=== PATIENT | male | born 1960 | race Caucasian/White ===

== ENCOUNTER → 2017-10-06 13:52 | Outpatient (CLI) | payer BC, SELFPAY ==
--- NOTE | 2017-10-06 13:59 | XR_ITS ---
XR ribs RT min 3V w CXR1V HISTORY: ITS.REASON: RT RIB PAIN ORDERING PHYSICIAN: Kamla Babcock PATIENT AGE: 57 years COMPARISON: 10/01/2014 FINDINGS: There are old right-sided rib fractures with old fractures of the right fifth and seventh ribs. Old right second rib fracture. In addition, there are acute nondisplaced fractures involving the right third, fourth, fifth, and 6 ribs laterally. Nondisplaced seventh rib fracture also noted anterolaterally Frontal view of the chest shows no evidence of pneumothorax. There are old left-sided rib fractures and there is blunting of the right CP angle with pleural thickening on the right. There is patchy density in the right midlung laterally which could be due to underlying contusion IMPRESSION: 1. Acute nondisplaced right third through seventh ribs with possible right midlung contusion 2. Old bilateral rib fractures with pleural thickening on the right versus small right effusion
== END ==
PROVIDERS: PCP Family Medicine; Visit Provider Nurse Practitioner Family
DX: R07.81 Pleurodynia (principal)
CPT/HCPCS: 71101

== ENCOUNTER → 2018-07-09 12:54 | Outpatient (CLI) | payer BC, SELFPAY ==
--- NOTE | 2018-07-09 13:00 | US_ITS ---
US soft tissue head and neck CLINICAL INDICATION: ITS.REASON: SWOLLEN LYMPH NODES ORDERING PHYSICIAN: Martinez Chan MD PATIENT AGE: 57 years Comparison: None FINDINGS: No obvious parotid mass is evident. No obvious submandibular mass. There is a hypoechoic area along the lower aspect of the right parotid gland at 9 x 6 mm and may represent a lymph node with central fatty hilum. Small lymph node also noted along the left parotid gland inferiorly at 13 x 6 mm. No fluid collections are evident. IMPRESSION: Small bilateral lymph nodes in the parotid regions otherwise negative. Consider CT with contrast if symptoms persist
== END ==
PROVIDERS: PCP Family Medicine; Visit Provider Family Medicine
DX: R59.9 Enlarged lymph nodes, unspecified (principal)
CPT/HCPCS: 76536

== ENCOUNTER → 2018-11-19 12:44 | Outpatient (CLI) | payer BC, SELFPAY ==
--- NOTE | 2018-11-19 12:49 | XR_ITS ---
XR ankle LT min 3V HISTORY: Follow-up fracture ITS.REASON: ankle fracture, non weightbearing ORDERING PHYSICIAN: Aysha Blackwood MD PATIENT AGE: 58 years Comparison: 10/27/2018 FINDINGS: Nondisplaced transverse fracture once again noted of the distal fibula at the level of the ankle joint. Fracture line is still visible but may be somewhat less apparent. Soft tissue swelling has improved. IMPRESSION: Nondisplaced fracture at the lateral malleoli region of the fracture line somewhat less apparent
== END ==
PROVIDERS: PCP Family Medicine; Visit Provider Orthopaedic Surgery
DX: S82.402A Unspecified fracture of shaft of left fibula, initial encounter for closed fracture (principal)
CPT/HCPCS: 73610

== ENCOUNTER → 2018-12-10 09:50 | Outpatient (CLI) | payer BC, SELFPAY ==
--- NOTE | 2018-12-10 10:03 | XR_ITS ---
XR ankle LT min 3V Ordering Physician: Aysha Blackwood MD Patient Age: 58 years: Male HISTORY: ITS.REASON: ap. lateral, mortise views weight bearing TECHNIQUE: 3 views left ankle COMPARISON :None 320 05/12 and 10/27/2018 left ankle series FINDINGS The fracture of the distal fibula again noted. Fracture line remains clearly evident but there is early healing some early callus formation... A good apposition/stable position Although the fracture it appears transverse orientation on frontal projection; on the lateral view it is seen extending in an oblique fashion upward to the posterior aspect of the distal fibular metaphysis.. . There is been regression of the soft tissue swelling laterally. The medial malleolus is intact. Ankle mortise intact. Dome of talus intact. Posterior malleolus unremarkable. IMPRESSION. Healing fracture distal fibula
== END ==
PROVIDERS: PCP Family Medicine; Visit Provider Orthopaedic Surgery
DX: S82.402A Unspecified fracture of shaft of left fibula, initial encounter for closed fracture (principal)
CPT/HCPCS: 73610

== ENCOUNTER → 2018-12-31 09:27 | Outpatient (CLI) | payer BC, SELFPAY ==
--- NOTE | 2018-12-31 09:33 | XR_ITS ---
XR ankle LT min 3V HISTORY: Follow-up fracture ITS.REASON: ap, lateral, mortise views weightbearing ORDERING PHYSICIAN: Aysha Blackwood MD PATIENT AGE: 58 years Comparison: 12/10/2018 FINDINGS: Healing oblique fracture involves the distal fibula with developing callus formation. Fracture is nondisplaced in the fracture line is less apparent. IMPRESSION: Healing distal fibular fracture nondisplaced
== END ==
PROVIDERS: PCP Family Medicine; Visit Provider Orthopaedic Surgery
DX: S82.402A Unspecified fracture of shaft of left fibula, initial encounter for closed fracture (principal)
CPT/HCPCS: 73610

== ENCOUNTER 2018-12-31 11:10 | Outpatient (RCR) | payer BC, SELFPAY | END 2018-12-31 11:20 | disposition home or self-care (01) | LOC: PT 11:10 | PROVIDERS: Visit Provider Orthopaedic Surgery | DX: S82.832A Other fracture of upper and lower end of left fibula, initial encounter for closed fracture (principal) | CPT/HCPCS: 97760 ==

== ENCOUNTER → 2019-01-31 09:59 | Outpatient (CLI) | payer BC, SELFPAY ==
--- NOTE | 2019-01-31 10:05 | XR_ITS ---
XR ankle LT min 3V HISTORY: Follow-up fracture ITS.REASON: follow up ORDERING PHYSICIAN: Aysha Blackwood MD PATIENT AGE: 58 years Comparison: 12/31/2018 FINDINGS: Nondisplaced distal fibular fracture once again noted. The transverse component of the fracture line is still visible. The oblique component is less apparent. The fracture remains nondisplaced. IMPRESSION: Nondisplaced distal fibular fracture with transverse component of the fracture line still visible
== END ==
PROVIDERS: PCP Family Medicine; Visit Provider Orthopaedic Surgery
DX: S82.402A Unspecified fracture of shaft of left fibula, initial encounter for closed fracture (principal)
CPT/HCPCS: 73610

== ENCOUNTER 2021-03-12 11:44 | Emergency (ER) | payer BC, SELFPAY ==
[2021-03-12 11:50] VITALS: BP 135/82; PULSE 91; RESP 19; TEMP 36.8; O2SAT 98; BMI 27.8
--- NOTE | 2021-03-12 12:58 | HMH.EDUTC ---
[facility] Disposition Condition on Discharge: Good Time of Disposition: 13:09 <Larissa Downing - Last Filed: 03/12/21 14:35> <Althea Saldana - Last Filed: 03/12/21 19:37> Clinical Impression: Selam-rectal abscess Disposition: Home, Self-Care Instructions: Anal Abscess, DI for Anal Abscess Additional Instructions: You have been evaluated for an selam-anal abscess. Please take antibiotics as prescribed. Flossed the vessel loop 2 times daily. Continue to do sitz bath's. Follow-up with your primary care doctor and general surgery. Return to the emergency department for any new or worsening symptoms, pain, fevers, other concerns. Prescriptions: Ciprofloxacin HCl 500 mg PO BID #14 tab Transmission Status: Received by [facility] metroNIDAZOLE [Metronidazole] 500 mg PO TID #21 tab Transmission Status: Received by [facility] Referrals: Martinez Chan MD [Primary Care Provider] - Kamron Quach MD [Staff Physician] - Medical Decision Making - Simba Inquiry Pt receiving controlled substance: No Simba was queried for this patient: No - Lab Data Result diagrams: 03/12/21 13:10 03/12/21 14:17 <Larissa Downing E - Last Filed: 03/12/21 14:35> - Lab Data Result diagrams: 03/12/21 13:10 03/12/21 14:17 <Althea Saldana - Last Filed: 03/12/21 19:37> Vital Signs: 03/12/21 11:50 03/12/21 13:10 03/12/21 15:07 Temperature 98.3 F Temperature Source Oral Pulse Rate 82 Pulse Rate [Right Brachial] 91 H 74 Respiratory Rate 19 20 16 Blood Pressure 146/84 H Blood Pressure [Right Arm] 135/82 126/56 L Blood Pressure Mean [Right Arm] 99 79 Blood Pressure Source [Right Arm] Automatic Cuff Automatic Cuff Blood Pressure Position [Right Arm] Sitting Standing 02 Sat by Pulse Oximetry 98 98 98 Oxygen Delivery Method Room Air 03/12/21 16:07 Temperature 98.3 F Temperature Source Pulse Rate 87 Pulse Rate [Right Brachial] Respiratory Rate 18 Blood Pressure 181/91 H Blood Pressure [Right Arm] Blood Pressure Mean [Right Arm] Blood Pressure Source [Right Arm] Blood Pressure Position [Right Arm] 02 Sat by Pulse Oximetry Oxygen Delivery Method - Lab Data Lab Results 03/12/21 13:10: WBC 18.2 H, RBC 4.68, Hgb 15.9, Hct 44.9, MCV 95.9 H, MCH 34.0 H, MCHC 35.4, RDW 13.6, Plt Count 282, MPV 12.7 H, Neut % (Auto) 86.8 H, Lymph % (Auto) 8.8 L, [place] % (Auto) 2.6, Eos % (Auto) 1.2, Baso % (Auto) 0.7, Neut # (Auto) 15.7 H, Lymph # (Auto) 1.6, [place] # (Auto) 0.5, Eos # (Auto) 0.2, Baso # (Auto) 0.1, Total Counted 100, Neutrophils % (Manual) 80 H, Lymphocytes % (Manual) 13, Monocytes % (Manual) 7, Platelet Estimate Normal, Hypochromasia 1+, Macrocytosis 1+ 03/12/21 13:10: Sodium 132 L, Potassium 10.9 H*, Chloride 99, Carbon Dioxide 23, Anion Gap 20.9 H, BUN 10, Creatinine 0.60 L, Estimated Creat Clear 174, Estimated GFR 138, Est GFR ( Amer) 167, Glucose 115 H, Calcium 9.1 03/12/21 14:17: Sodium 136, Potassium 3.9 D, Chloride 100, Carbon Dioxide 26, Anion Gap 13.9, BUN 9, Creatinine 0.70, Estimated Creat Clear 149, Estimated GFR 115, Est GFR ( Amer) 140, Glucose 113 H, Calcium 9.3 Orders (Tests/Meds): ED MEDICATIONS Discontinued Medications Generic Name Dose Route Start Last Admin Trade Name Freq PRN Reason Stop Dose Admin Sodium Chloride 1,000 mls @ 999 mls/hr 03/12/21 13:45 03/12/21 14:13 Sod Chlor 0.9% 1000ml Bag IV 03/12/21 14:45 999 mls/hr .Q1H1M RHONDA Administration Iopamidol 75 ml 03/12/21 14:00 03/12/21 14:00 Iopamidol-370 (76%);100ml Bottle IV 03/12/21 14:01 75 ml ONCE ONE Administration Lidocaine HCl 5 ml 03/12/21 14:31 03/12/21 14:34 Lidocaine 1% 10ml Mdv SQ 03/12/21 14:32 5 ml ONCE ONE Administration Lidocaine/Prilocaine 5 gm 03/12/21 14:31 03/12/21 14:35 Lidocaine/Prilocaine 5gm Tube TP 03/12/21 14:32 5 gm ONCE ONE Administration Sodium Chloride 10 ml 03/12/21 14:00 03/12/21 14:00 Sodium Chloride 0.9% 10ml
--- NOTE | 2021-03-12 13:05 | PC.NURSE ---
PATIENT SENT TO ER PER Yu CAMPOS APRN FOR FURTHER EVALUATION. REPORT GIVEN BY Yu CAMPOS APRN TO Andrzej DUNAWAY RN
--- NOTE | 2021-03-12 13:07 | CT_ITS ---
PROCEDURE: CT ABDOMEN PELVIS W CON CLINICAL INDICATION: georgette-rectal pain COMPARISON: No exams were available for comparison TECHNIQUE: Axial images obtained with sagittal and coronal reformats. All CT scans at the facility use one or more dose reduction, viz: automated exposure control, ma/kV adjustment per patient size (including targeted exams where dose is matched to indication, i.e. head), or iterative reconstruction technique. FINDINGS: LOWER THORAX: Left basal atelectasis is noted. Calcified granuloma in the left lower lobe. Centrilobular emphysematous changes are noted bilaterally. HEPATOBILIARY: Liver: Diffuse fatty infiltration of the liver is noted. No focal liver lesions. Gallbladder: Focal hyperdensity noted in the neck of the gallbladder, may represent calcified gallstones. The gallbladder is otherwise unremarkable without evidence of gallbladder wall thickening or pericholecystic fluid. Biliary: No intrahepatic or extrahepatic ductal dilation. PANCREAS: No focal masses or ductal dilatation. SPLEEN:No splenomegaly. ADRENALS:No adrenal nodules. KIDNEYS/URETERS/BLADDER: No hydronephrosis, stones, or solid mass lesions are seen in the visualized portions of the kidneys. PERITONEUM / RETROPERITONEUM: No free air or fluid. LYMPH NODES: Few scattered bilateral external iliac and inguinal lymph nodes are noted, largest on the left measuring up to 1.1 centimeters. There are few scattered presacral lymph nodes are noted measuring up to 9.9 centimeters. GI TRACT: Multiple uncomplicated colonic diverticula are present. The rectum appears thick-walled and demonstrates minor perirectal stranding. There is a focal fluid density with rim enhancement noted adjacent to the anal canal measuring approximately 3.1 times 2.6 centimeters, demonstrates minor adjacent stranding and soft tissue density. The collection extends superiorly up to the level of the internal sphincter. No evidence of inflammation or bowel obstruction. Appendix is normal VASCULAR: The aorta is normal in caliber, without evidence of abdominal aortic aneurysm or dissection. Extensive atherosclerotic vascular calcification of the abdominal aorta and its branches. The prostate gland is unremarkable. Prostatic calcification is noted. ABDOMINAL WALL: Small fat containing umbilical hernia is noted. SOFT TISSUES: Unremarkable. BONES: Superior endplate compression deformity of the T12 vertebral body with approximately 50 percent height loss. This is age indeterminate. Multilevel degenerative changes of the lumbar spine noted. There is grade 1 anterolisthesis of L5 over S1 measuring 3 millimeters. Right L5 spondylolysis noted at this level. IMPRESSION: Findings are consistent with perianal abscess extending to the level of the internal sphincter. The visualized distal rectum demonstrates moderate wall thickening with the adjacent stranding in the mesial rectal fascia and small lymph nodes measuring up to 5 millimeters are noted, raises the concern for proctitis. This may be reactive in view of the perianal abscess. Neoplasm cannot be completely excluded. Colonoscopy should be considered. Few presacral, bilateral external iliac and inguinal lymph nodes measuring up to 1.1 centimeters. Colonic diverticula without evidence of diverticulitis. Focal hyperdensity noted in the neck of the gallbladder. Gallstones suspected. No evidence of cholecystitis. Other chronic findings as described above. Dictated by: Shira Elliott 03/12/2021 14:21 Shira Elliott in OV 03/12/2021 14:21
[2021-03-12 13:10] VITALS: BP 126/56; PULSE 74; RESP 20; O2SAT 98; BMI 27.8
[2021-03-12 13:26] LABS: Basophils # 0.1 K/mm3 (0-0.2); Basophils % 0.7 % (0.1-2.0); Eosinophils # 0.2 K/mm3 (0.0-0.4); Eosinophils % 1.2 % (0.1-12.0); Hematocrit 44.9 % (42.0-52.0); Hemoglobin 15.9 g/dL (14.1-18.0); Lymphocytes # 1.6 K/mm3 (0.7-4.5); Lymphocytes % 8.8 % (10-50); Mean Corpuscular HGB Conc 35.4 g/dL (31.8-35.4); Mean Corpuscular Volume 95.9 fl (80-94); Mean Platelet Volume 12.7 fl (7.4-10.4); Monocytes # 0.5 K/mm3 (0.1-1.0); Monocytes % 2.6 % (1.7-9.3); Neutrophils # 15.7 K/mm3 (1.8-7.8); Neutrophils % 86.8 % (37.0-80.0); Platelet Count 282 K/mm3 (142-424); Red Blood Count 4.68 M/mm3 (4.60-6.20); Red Cell Distribution Width 13.6 % (11.5-17.5); White Blood Count 18.2 K/mm3 (4.8-10.8)
[2021-03-12 13:27] LABS: Chloride 99 mmol/L (98-107); Sodium 132 mmol/L (136-145)
[2021-03-12 13:29] LABS: MANUAL DIFFERENTIAL MANUAL DIFFERENTIAL (MANUAL DIFF)
[2021-03-12 13:30] LABS: Anion Gap 20.9 mEq/L (5-15); Blood Urea Nitrogen 10 mg/dl (9-20); Calcium 9.1 mg/dl (8.4-10.2); Carbon Dioxide 23 mmol/L (22.0-30.0); Creatinine Clearance Estimated 174 mL/min (50-200); Estimated Glomerular Filt Rate 138 ml/min (>60); GFR (African American) 167 ML/MIN (>60); Glucose 115 mg/dl (74-100)
[2021-03-12 13:35] LABS: Potassium 10.9 mmoL/L (3.5-5.1)
--- NOTE | 2021-03-12 13:36 | PC.NURSE ---
Reported critical calcium of 10.9 to
--- NOTE | 2021-03-12 13:39 | PC.NURSE ---
critical K+ 10.[address] Matos. Re draw ordered.
--- NOTE | 2021-03-12 13:40 | PC.NURSE ---
Pt to rad
--- NOTE | 2021-03-12 13:48 | PC.NURSE ---
Additional blood drawn to rerun Potassium d/t initial critical result. Second specimen collected was reported by lab to be hemolyzed. Lab to redraw next specimen once pt finishes with CT.
[2021-03-12 14:10] LABS: Lymphocytes % 13 % (10-50); Monocytes % 7 % (2-9); Neutrophils % 80 % (42-76); Platelet Estimate Normal; Total Cells Counted 100
[2021-03-12 14:11] LABS: Hypochromasia 1+; Macrocytosis 1+
--- NOTE | 2021-03-12 14:17 | PC.NURSE ---
Lab at bedside.
[2021-03-12 14:30] LABS: Chloride 100 mmol/L (98-107); Sodium 136 mmol/L (136-145)
[2021-03-12 14:31] LABS: Potassium 3.9 mmoL/L (3.5-5.1)
[2021-03-12 14:33] LABS: Blood Urea Nitrogen 9 mg/dl (9-20); Creatinine Clearance Estimated 149 mL/min (50-200); Estimated Glomerular Filt Rate 115 ml/min (>60); GFR (African American) 140 ML/MIN (>60)
[2021-03-12 14:34] LABS: Anion Gap 13.9 mEq/L (5-15); Calcium 9.3 mg/dl (8.4-10.2); Carbon Dioxide 26 mmol/L (22.0-30.0); Glucose 113 mg/dl (74-100)
--- NOTE | 2021-03-12 14:34 | HMH.EDGENADL ---
ED Disposition Clinical Impression: Selam-rectal abscess Disposition: Home, Self-Care Condition on Discharge: Fair Instructions: Anal Abscess, DI for Anal Abscess Additional Instructions: You have been evaluated for an selam-anal abscess. Please take antibiotics as prescribed. Flossed the vessel loop 2 times daily. Continue to do sitz bath's. Follow-up with your primary care doctor and general surgery. Return to the emergency department for any new or worsening symptoms, pain, fevers, other concerns. Prescriptions: Ciprofloxacin HCl 500 mg PO BID #14 tab Transmission Status: Received by [facility] metroNIDAZOLE [Metronidazole] 500 mg PO TID #21 tab Transmission Status: Received by [facility] Referrals: Martinez Chan MD [Primary Care Provider] - Kamron Quach MD [Staff Physician] - Time of Disposition: 14:40 - Critical Care Critical Care Time: No Attestation: On 03/12/21, the high probability of a clinically significant, sudden or life threatening deterioration of the following system(s) required my full and direct attention, intervention and personal management. The time I documented below is in addition to time spent performing reported procedures but includes the following listed in this critical care notation. Medical Decision Making - Medical Records Medical records reviewed: Yes: I reviewed the patient's medical records. - Simba Inquiry Pt receiving controlled substance: No Vital Signs: 03/12/21 11:50 03/12/21 13:10 03/12/21 15:07 Temperature 98.3 F Temperature Source Oral Pulse Rate 82 Pulse Rate [Right Brachial] 91 H 74 Respiratory Rate 19 20 16 Blood Pressure 146/84 H Blood Pressure [Right Arm] 135/82 126/56 L Blood Pressure Mean [Right Arm] 99 79 Blood Pressure Source [Right Arm] Automatic Cuff Automatic Cuff Blood Pressure Position [Right Arm] Sitting Standing 02 Sat by Pulse Oximetry 98 98 98 Oxygen Delivery Method Room Air - Lab Data Lab Results 03/12/21 13:10: WBC 18.2 H, RBC 4.68, Hgb 15.9, Hct 44.9, MCV 95.9 H, MCH 34.0 H, MCHC 35.4, RDW 13.6, Plt Count 282, MPV 12.7 H, Neut % (Auto) 86.8 H, Lymph % (Auto) 8.8 L, [place] % (Auto) 2.6, Eos % (Auto) 1.2, Baso % (Auto) 0.7, Neut # (Auto) 15.7 H, Lymph # (Auto) 1.6, [place] # (Auto) 0.5, Eos # (Auto) 0.2, Baso # (Auto) 0.1, Total Counted 100, Neutrophils % (Manual) 80 H, Lymphocytes % (Manual) 13, Monocytes % (Manual) 7, Platelet Estimate Normal, Hypochromasia 1+, Macrocytosis 1+ 03/12/21 13:10: Sodium 132 L, Potassium 10.9 H*, Chloride 99, Carbon Dioxide 23, Anion Gap 20.9 H, BUN 10, Creatinine 0.60 L, Estimated Creat Clear 174, Estimated GFR 138, Est GFR ( Amer) 167, Glucose 115 H, Calcium 9.1 03/12/21 14:17: Sodium 136, Potassium 3.9 D, Chloride 100, Carbon Dioxide 26, Anion Gap 13.9, BUN 9, Creatinine 0.70, Estimated Creat Clear 149, Estimated GFR 115, Est GFR ( Amer) 140, Glucose 113 H, Calcium 9.3 Result diagrams: 03/12/21 13:10 03/12/21 14:17 Orders (Tests/Meds): ED MEDICATIONS Discontinued Medications Generic Name Dose Route Start Last Admin Trade Name Freq PRN Reason Stop Dose Admin Sodium Chloride 1,000 mls @ 999 mls/hr 03/12/21 13:45 03/12/21 14:13 Sod Chlor 0.9% 1000ml Bag IV 03/12/21 14:45 999 mls/hr .Q1H1M RHONDA Administration Iopamidol 75 ml 03/12/21 14:00 03/12/21 14:00 Iopamidol-370 (76%);100ml Bottle IV 03/12/21 14:01 75 ml ONCE ONE Administration Lidocaine HCl 5 ml 03/12/21 14:31 03/12/21 14:34 Lidocaine 1% 10ml Mdv SQ 03/12/21 14:32 5 ml ONCE ONE Administration Lidocaine/Prilocaine 5 gm 03/12/21 14:31 03/12/21 14:35 Lidocaine/Prilocaine 5gm Tube TP 03/12/21 14:32 5 gm ONCE ONE Administration Sodium Chloride 10 ml 03/12/21 14:00 03/12/21 14:00 Sodium Chloride 0.9% 10ml Syr (Rad Only) IV 03/12/21 14:01 10 ml ONCE ONE Administration Medical Decision Narrative: In summary this is a 60-year-o
--- NOTE | 2021-03-12 14:42 | PC.NURSE ---
emla cream applied to perianal abcess
[2021-03-12 15:07] VITALS: BP 146/84; PULSE 82; RESP 16; O2SAT 98
[2021-03-12 16:07] VITALS: BP 181/91; PULSE 87; RESP 18; TEMP 36.8
== END 2021-03-12 16:14 | disposition home or self-care (01) ==
LOC: UTC 11:50 → ER 13:06
PROVIDERS: Emergency Provider Emergency Medicine; PCP Family Medicine
DX: K61.1 Rectal abscess (principal); I10 Essential (primary) hypertension; F41.8 Other specified anxiety disorders; F17.210 Nicotine dependence, cigarettes, uncomplicated
CPT/HCPCS: 46050; 36415; 74177; 80048; 85007; 85025; 96365; 99284; Q9967

== ENCOUNTER → 2021-06-04 12:01 | Outpatient (CLI) | payer BC, SELFPAY | PROVIDERS: Visit Provider Surgery | DX: Z01.812 Encounter for preprocedural laboratory examination (principal); Z11.52 Encounter for screening for COVID-19; Z12.11 Encounter for screening for malignant neoplasm of colon | CPT/HCPCS: C9803; U0003; U0005 ==

== ENCOUNTER 2021-06-06 06:32 | Day surgery (SDC) | payer BC, SELFPAY ==
[2021-06-03 15:34] VITALS: BMI 27.8
[2021-06-06 06:55] VITALS: BP 135/74; PULSE 86; RESP 18; TEMP 36.2; O2SAT 97
[2021-06-06 07:26] VITALS: O2SAT 97
--- NOTE | 2021-06-06 08:16 | HMH.SCOPE ---
- Procedure: Date: 06/06/21 Patient Date of :: 1960 Procedure Performed:: Colonoscopy with polypectomy Indications:: History of polyps Performing Provider:: Kamron Quach MD Referring Provider:: . Sedation:: Monitored anesthesia care Procedure:: After informed consent was obtained the patient was taken to the endoscopy suite. Sedation ensued after the patient was transferred to the left lateral decubitus position. Pulse, blood pressure, and oxygen saturation were monitored throughout the procedure. Digital rectal exam revealed no significant abnormality. The colonoscope was placed in position. The entire colon was evaluated. The colonoscope was carefully removed and the patient was transferred to recovery in stable condition. Please see findings and specimens below for detail. Findings:: Bowel preparation moderate Fairly severe lack of relaxation Mild anal stenosis Mild hemorrhoidal cushions Sigmoid diverticulosis Polyps (see specimens) Specimens:: Cluster of small periappendiceal polyps Polyps adjacent to ileocecal valve (x2) Proximal transverse colon polyp (snare) Proximal transverse colon submucosal lipoma (snare and biopsy) Distal transverse colon polyp (snare) Polyp at 25 cm Recommendations:: Timing of repeat colonoscopy is pending pathology but will likely be around 2-3 years secondary to size/nature/number of polyps, moderate bowel preparation, and significant lack of relaxation. Complications:: No immediate Estimated blood obtained (mL): 1
[2021-06-06 08:19] VITALS: BP 121/69; PULSE 69; RESP 18; TEMP 36.3; O2SAT 97
[2021-06-06 08:29] VITALS: BP 125/73; PULSE 56; RESP 18; O2SAT 98
[2021-06-06 08:39] VITALS: BP 131/72; PULSE 51; RESP 18; O2SAT 99
[2021-06-06 08:43] VITALS: BP 135/72; PULSE 52; RESP 18; O2SAT 98
--- NOTE | 2021-06-06 12:44 | HMH.ANESCL ---
[facility] Anesthesia Checklist - Patient Identification Patient Identification: Arm Band, Verbal (Name & ) - Structural Data Admitted From: Home Planned Operative Procedure/s: colonoscopy Consent for Planned Operative Procedure(s) Verified: Yes Verified Documents: Surgical Consent - NPO Status Verified Time NPO: 00:30 - Cardiovascular Assessment Heart Sounds: S1 & S2 - Airway Assessment C-Spine Mobility Assessed: Yes Dentition: Good Dentition - Neurological Assessment Level of Consciousness: Awake, Alert, Appropriate - Anesthesia Plan Anesthesia Risk discussed: Yes ASA Class: II Anesthesia Type: General [facility] History I have reviewed the patient's past medical history: Yes Medical History: Reports:: Anxiety, Asthma, Chronic Obstructive Pulmonary Disease (COPD), Depression, Hypertension Denies:: Cancer, Diabetes Mellitus Type 1, Diabetes Mellitus Type 2, Internal Pacemaker, MRSA, Seizures *Have you ever received a pneumonia vaccine?: No *Have you received a flu vaccine this season?: Yes Other Medical History: Reports: Sinus Problems Anesthesia experience/problems:: no issues Laterality Cases: Left: Arthroscopy Knee Other Surgeries: Yes: Colonoscopy. No: Pacemaker Amputation: No Fractures: No - *Social History Last grade of school completed: High school graduate Smoking Status: Current every day smoker Tobacco Type: cigarettes # Packs/Day (cigarettes): 1 Alcohol Intake: never Alcohol Intake Frequency:: 3 or more drinks per day Substance Use Type: denies use *Occupational Status:: other Housing: house Household Members: spouse *Travel in the last 8 weeks: None - Psychiatric History Pschychiatric History:: Reports:: Anxiety, Depression Family Hx:: No significant family history
== END 2021-06-06 08:50 | disposition home or self-care (01) ==
LOC: OUTP 06:33
PROVIDERS: PCP Family Medicine; Visit Provider Surgery
PROC: 0DJD8ZZ Inspection of Lower Intestinal Tract, Via Natural or Artificial Opening Endoscopic (ICD-10-PCS; CPT 45385; principal; 2021-06-06 07:30)
DX: Z12.11 Encounter for screening for malignant neoplasm of colon (principal); K62.89 Other specified diseases of anus and rectum; K64.0 First degree hemorrhoids; K57.30 Diverticulosis of large intestine without perforation or abscess without bleeding; K63.5 Polyp of colon; Z86.010 Personal history of colon polyps; J44.9 Chronic obstructive pulmonary disease, unspecified; I10 Essential (primary) hypertension; F41.9 Anxiety disorder, unspecified; F32.9 Major depressive disorder, single episode, unspecified; Z72.0 Tobacco use; Z88.6 Allergy status to analgesic agent
CPT/HCPCS: 45385; 45380; J2704